=== PATIENT | female | born 1955 | race Caucasian/White ===

== ENCOUNTER 2019-02-25 08:34 | Inpatient (IN) | payer BC, MEDICARE ==
[2019-02-20 15:11] LABS: BASOPHILS # (AUTO) 0.1 X10'3 (0-0.2); BASOPHILS % (AUTO) 0.6 % (0-1); EOSINOPHILS # (AUTO) 0.1 X10'3 (0-0.9); EOSINOPHILS % (AUTO) 1.2 % (0-6); LYMPHOCYTES # (AUTO) 2.2 X10'3 (1.1-4.8); LYMPHOCYTES % (AUTO) 24.8 % (21-51); MEAN CORPUSCULAR HEMOGLOBIN 30.9 PG (27.0-31.0); MEAN CORPUSCULAR HGB CONC 34.7 g/dL (33.0-36.5); MEAN CORPUSCULAR VOLUME 89.1 FL (78-98); MEAN PLATELET VOLUME 7.5 FL (7.4-10.4); MONOCYTES # (AUTO) 0.7 X10'3 (0-0.9); MONOCYTES % (AUTO) 7.4 % (2-12); NEUTROPHILS # (AUTO) 5.8 X10'3 (1.8-7.7); PRE OP HEMATOCRIT 41.8 % (35.0-45.0); PRE OP HEMOGLOBIN 14.5 g/dL (12.0-16.0); PRE OP PLATELET COUNT 290 X10'3 (140-440); RED BLOOD COUNT 4.69 X10'6 (4.20-5.60); RED CELL DISTRIBUTION WIDTH 13.9 % (11.5-14.5)
[2019-02-20 15:13] LABS: PRE OP PROTIME 9.8 SECONDS (9.0-12.0)
[2019-02-20 15:19] LABS: ALBUMIN 3.4 G/DL (3.4-5.0); ALBUMIN/GLOBULIN RATIO 0.9 (1.1-1.5); ALKALINE PHOSPHATASE 101 IU/L (46-116); BLOOD UREA NITROGEN 15 MG/DL (7-18); BUN/CREATININE RATIO 15.5 (6.6-38.0); CALCIUM 9.3 MG/DL (8.5-10.1); CHLORIDE 104 MMOL/L (99-107); CREATININE 0.97 MG/DL (0.40-0.90); PRE OP ALT 31 U/L (30-65); PRE OP ANION GAP 8 (8-16); PRE OP AST 17 U/L (10-37); PRE OP BILIRUB, TOTAL 0.3 MG/DL (0.0-1.0); PRE OP POTASSIUM 4.1 MMOL/L (3.4-5.1); PRE OP SODIUM 137 MMOL/L (135-145); TOTAL CARBON DIOXIDE 25.1 MMOL/L (24-32); TOTAL PROTEIN 7.4 G/DL (6.4-8.2); eGFR 58 ML/MIN
[2019-02-20 15:20] LABS: PRE OP GLUCOSE 80 MG/DL (70-104)
[2019-02-25] VITALS (20 sets, daily range): BP systolic 90–131; BP diastolic 52–88
[~2019-02-25] VITALS: Ht 167.6 cm; Wt 86.9 kg
[~2019-02-25 08:34] MED LIST: ANAS1TAB49 PO; CALC-1051 PO; MULT-933 PO; albuterol 2.5 MG/3 ML nebule NEB ONE; cefotetan 2gm/isosm dext IVPB 50 ML IV ONE; famotidine 20mg tablet PO ONE; ringers solution, lacted 1,000 ML IV SCH; scopolamine 1.5mg patch.TD72 TD ONE
[2019-02-25] MEDS ORDERED: ACET-2119 PO (09:15)
[2019-02-25] MEDS ORDERED: clindamycin phosphate 40gm vag cream ONE (09:17)
[2019-02-25] MEDS ORDERED: morphine 10mg/ml inj. ONE (09:18)
[2019-02-25] MEDS ORDERED: BUPIVAcaine/PF 2.5 mg/ml (0.25%) 30ml vial ONE (09:18)
[2019-02-25] MEDS ORDERED: vasoPRESSIN 20 units/ml inj. ONE (09:18)
[2019-02-25] MEDS ORDERED: LIDOcaine 1% 30ml preserv. free vial ONE (09:18)
[2019-02-25] MEDS ORDERED: ceFAZolin 1000mg inj ONE (09:18)
[2019-02-25] MEDS ORDERED: sevoflurane 250ml liquid IH ONE (10:54)
[2019-02-25] MEDS ORDERED: midazolam 2 mg/2 ml injection ONE (10:57)
[2019-02-25] MEDS ORDERED: fentaNYL /PF 50mcg/ml 5ml ampule ONE (10:57)
[2019-02-25] MEDS ORDERED: dexamethasone sod phosphate 4mg/ml inj. ONE (11:37)
[2019-02-25] MEDS ORDERED: rocuronium 10mg/ml inj IV ONE (11:37)
[2019-02-25] MEDS ORDERED: glycopyrrolate 0.2mg/ml inj ONE (11:37)
[2019-02-25] MEDS ORDERED: neostigmine methylsulfate 1 MG/ML 10ml vial ONE (11:37)
[2019-02-25] MEDS ORDERED: ondansetron/PF 4mg/2ml inj ONE (11:37)
[2019-02-25] MEDS ORDERED: LIDOcaine 2% (20mg/ml) 5ml vial ONE (11:37)
[2019-02-25] MEDS ORDERED: propofol inj 20 ML IV ONE (11:37)
[2019-02-25] MEDS ORDERED: ringers solution, lacted 1,000 ML IV SCH ×2 (11:59)
[2019-02-25] MEDS ORDERED: meperidine/PF 25mg/ml syringe IV PRN ×6 (12:00)
[2019-02-25] MEDS ORDERED: ondansetron/PF 4mg/2ml inj IV PRN ×3 (12:00→13:20)
[2019-02-25] MEDS ORDERED: morphine 4 MG/ML inj SYRINge IV PRN ×4 (12:00)
[2019-02-25] MEDS ORDERED: proCHLORperazine 10 MG/2 ml inj IV PRN ×2 (12:00)
[2019-02-25] MEDS ORDERED: fluoroscein sod 10% (100mg/ml) 5ml vial ONE (12:38)
[2019-02-25] MEDS ORDERED: albuterol 60 PUFF/8GM Inhaler IH ONE (13:07)
--- NOTE | 2019-02-25 13:08 | NUR ---
Received from OR via , accompanied by Anesthesiologist DR SENIOR and report given by Anesthesiolgist. AWAKENS TO VOICE. VITALS STABLE. DRESSINGS DI. MICK PAIN. ABD SOFT. GANDARA WITH CLEAR URINE.
[2019-02-25] MEDS ORDERED: HYDROcodone/acetaminophen 5mg/325mg tablet PO PRN (13:20)
[2019-02-25] MEDS ORDERED: magnesium hydroxide 30ml (MOM) UD suspension PO PRN (13:20)
[2019-02-25] MEDS ORDERED: normal saline 500ml IV soln 500 ML IV PRN (13:20)
[2019-02-25] MEDS ORDERED: diphenhydrAMINE 50 mg/ml inj IV PRN (13:20)
[2019-02-25] MEDS ORDERED: naloxone 0.4 mg/ml inj IV PRN (13:20)
[2019-02-25] MEDS ORDERED: CADD PCA waste documentation MC PRN (13:20)
[2019-02-25] MEDS ORDERED: temazepam 15mg capsule PO PRN (13:20)
[2019-02-25] MEDS: HYDROmorphone/NS 1 mg/ml CADD 50 ML IV SCH ×5 (14:08→23:00)
--- NOTE | 2019-02-25 14:28 | NUR ---
Report called to receiving nurse. Transferred via BED Belongings . Special Issues communicated to receiving nurse. AWAKE AND ORIENTED. VITALS STABLE. DRESSINGS DI. MICK PAIN. TO SURGICAL RM 344A AT THIS TIME.
--- NOTE | 2019-02-25 14:30 | NUR ---
Report received from MARLO Rob in recovery. Patient arrived to floor, minimal pain, post op vitals started. no further needs at this time. at bedside.
--- NOTE | 2019-02-25 19:00 | NUR ---
Problems reprioritized. Patient report given, questions answered & plan of care reviewed with MARLO Muro.
[2019-02-25] MEDS: docusate sod 100mg capsule PO SCH (20:05)
[2019-02-25] MEDS: simethicone 80mg chew tab PO SCH (20:06)
[2019-02-25] MEDS: ringers solution, lacted 1,000 ML IV SCH ×2 (21:17→23:31)
[2019-02-26 00:22] VITALS: BP 94/53
[2019-02-26] MEDS: HYDROmorphone/NS 1 mg/ml CADD 50 ML IV SCH ×5 (01:00→09:00)
[2019-02-26 04:58] LABS: BASOPHILS # (AUTO) 0.1 X10'3 (0-0.2); BASOPHILS % (AUTO) 0.9 % (0-1); EOSINOPHILS % (AUTO) 0 % (0-6); HEMATOCRIT 38.4 % (35.0-45.0); HEMOGLOBIN 12.8 g/dl (12.0-16.0); LYMPHOCYTES # (AUTO) 1.5 X10'3 (1.1-4.8); LYMPHOCYTES % (AUTO) 10.2 % (21-51); MEAN CORPUSCULAR HEMOGLOBIN 30.3 PG (27.0-31.0); MEAN CORPUSCULAR HGB CONC 33.4 g/dL (33.0-36.5); MEAN CORPUSCULAR VOLUME 90.7 FL (78-98); MEAN PLATELET VOLUME 7.8 FL (7.4-10.4); MONOCYTES # (AUTO) 0.8 X10'3 (0-0.9); MONOCYTES % (AUTO) 5.5 % (2-12); NEUTROPHILS # (AUTO) 11.9 X10'3 (1.8-7.7); NEUTROPHILS % (AUTO) 83.4 % (42-75); PLATELET COUNT 242 X10'3 (140-440); RED BLOOD COUNT 4.23 X10'6 (4.20-5.60); RED CELL DISTRIBUTION WIDTH 14.1 % (11.5-14.5); WHITE BLOOD COUNT 14.3 X10'3 (4.5-11.0)
[2019-02-26] MEDS: ringers solution, lacted 1,000 ML IV SCH ×2 (05:17→12:32)
--- NOTE | 2019-02-26 06:52 | NUR ---
Problems reprioritized. Patient report given, questions answered & plan of care reviewed with Carly SELLERS.
[2019-02-26 07:15] VITALS: BP 105/61
[2019-02-26] MEDS: simethicone 80mg chew tab PO SCH ×2 (07:21→12:39)
[2019-02-26] MEDS: docusate sod 100mg capsule PO SCH (07:21)
[2019-02-26] MEDS ORDERED: calcium carbonate/vitamin D3 tablet PO SCH (08:00)
[2019-02-26] MEDS ORDERED: multivitamins, therapeutics tablet PO SCH (08:00)
[2019-02-26] MEDS ORDERED: anastrozole 1 MG tablet PO SCH (08:00)
[2019-02-26] MEDS: HYDROcodone/acetaminophen 5mg/325mg tablet PO PRN ×2 (10:53→15:30)
[2019-02-26 11:28] VITALS: BP 126/51
[2019-02-26 11:31] VITALS: BP 127/58
--- NOTE | 2019-02-26 11:43 | NUR ---
Patient unable to void after trying for several hours. Student nurse placed 16-[place] catheter using sterile technique with me at bedside. Patient tolerated well.
--- NOTE | 2019-02-26 15:46 | NUR ---
Discharged home with driving. IV removed. All belongings taken from room. Stable and appropriate. Discharge instructions given and reviewed with patient. Catheter care explained with patient.
== END 2019-02-26 15:46 | disposition home or self-care (01) | DRG 743 ==
LOC: PAS IN 08:34 → EDSTATUS 11:15 → SUR 3N 14:52
PROVIDERS: ADMIT Specialist; ATTEND Specialist
PROC: 0UT7FZZ Resection of Bilateral Fallopian Tubes, Via Natural or Artificial Opening With Percutaneous Endoscopic Assistance (ICD-10-PCS; 2019-02-25)
PROC: 0USG4ZZ Reposition Vagina, Percutaneous Endoscopic Approach (ICD-10-PCS; 2019-02-25)
PROC: 0UQF4ZZ Repair Cul-de-sac, Percutaneous Endoscopic Approach (ICD-10-PCS; 2019-02-25)
PROC: 0TSD4ZZ Reposition Urethra, Percutaneous Endoscopic Approach (ICD-10-PCS; 2019-02-25)
PROC: 0UT9FZZ Resection of Uterus, Via Natural or Artificial Opening With Percutaneous Endoscopic Assistance (ICD-10-PCS; principal; 2019-02-25 10:54)
DX: N81.4 Uterovaginal prolapse, unspecified (principal); N39.3 Stress incontinence (female) (male)
CPT/HCPCS: 36415; 80053; 82948; 85025; 85610; 85730; 86885; 86900; 86901; 87070; 88302; 88305; A4315; A4355; A6250; A7000; C1771; G0378; J0690; J1100; J1170; J2001; J2250; J2270; J2405; J2704; J2710; J3010; J3490; J7030; J7120